=== PATIENT | female | born 2005 | race Caucasian/White ===

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

== ENCOUNTER 2023-04-19 18:04 | Emergency (ER) | payer OTHER ==
[2023-04-19 18:12] VITALS: BP 118/71; O2SAT 99
--- NOTE | 2023-04-19 18:18 | ED Physician Documentation ---
History of Present Illness - Stated complaint Stated Complaint: - Chief complaint Chief Complaint: UTI - History obtained from History obtained from: Patient - Additonal information Additional information: Urinary frequency urgency and dysuria since yesterday. No flank pain or fevers. No health problems. No frequent UTIs. PD PAST MEDICAL HISTORY - Past Medical History Past Medical History: Yes Derm: Eczema - Past Surgical History Past Surgical History: No - Present Medications Home Medications: Ambulatory Orders Medication Instructions Recorded Confirmed metroNIDAZOLE [Flagyl] 500 mg PO BID 7 Days #14 tablet 04/20/23 - Allergies Allergies/Adverse Reactions: Allergies Allergy/AdvReac Type Severity Reaction Status Date / Time No Known Drug Allergies Allergy Verified 04/19/23 18:10 - Social History Does the pt smoke?: No Smoking Status: Never smoker Does the pt drink ETOH?: No Does the pt have substance abuse?: No - Immunizations Immunizations are current?: Yes - POLST Patient has POLST: No PD ED PE NORMAL - Vitals Vital signs reviewed: Yes - General General: Alert and oriented X 3, No acute distress - Abdomen Abdomen: Soft, Non tender - Back Back: No CVA TTP - Neuro Neuro: Alert and oriented X 3 Results - Vitals Vitals: Vital Signs - 24 hr 04/19/23 18:07 Temperature 37.0 C Heart Rate 84 Respiratory 14 Rate Blood Pressure 118/71 O2 Saturation 99 Oxygen O2 Source Room air - Labs Labs: Laboratory Tests 04/19/23 04/19/23 04/19/23 18:13 19:00 19:00 Urine Color YELLOW Urine Clarity CLEAR Urine pH 6.0 Ur Specific [place] 1.025 Urine Protein NEGATIVE Urine Glucose (UA) NEGATIVE Urine Ketones NEGATIVE Urine Occult Blood SMALL H Urine Nitrite NEGATIVE Urine Bilirubin NEGATIVE Urine Urobilinogen 1 (NORMAL) Ur Leukocyte Esterase NEGATIVE Urine RBC 0-5 Urine WBC 0-3 Ur Squamous Epith Cells MOD Squamous H Urine Bacteria Rare Urine Mucus Few Strands Ur Microscopic Review INDICATED Urine Culture Comments NOT INDICATED Urine HCG, Qual NEGATIVE C. glabrata (PCR) NEGATIVE C. krusei (PCR) NEGATIVE Nini species DNA NEGATIVE Chlam trachomat DNA PCR NEGATIVE N.gonorrhoeae DNA (PCR) NEGATIVE T. vaginalis (PCR) NEGATIVE TNP Bact Vaginosis (PCR) POSITIVE A PD Medical Decision Making - ED course ED course: 17-year-old presents with dysuria, no discharge, already tried Monistat, normal exam. Urinalysis unremarkable. Will check for BV/yeast/STIs. 04/20/23 0946am: Spoke with pt, pos for BV, rx flagyl sent to [facility]. Departure - Departure Disposition: 01 Home, Self Care Clinical Impression: Dysuria Condition: Good Record reviewed to determine appropriate education?: Yes Instructions: ED Dysuria Uncertain Cause Prescriptions: metroNIDAZOLE [Flagyl] 500 mg PO BID 7 Days #14 tablet Comments: Your urinalysis was unremarkable. No sign of urinary infection/bladder infection. Because of that we are testing for bacterial vaginosis, yeast, and STDs. We will call with any positive results, and tailor specific therapy at that point. Because the tests take many hours, we will call again with any positive results. Discharge Date/Time: 04/19/23 19:03
[2023-04-19 18:22] LABS: BILIRUBIN,URINE NEGATIVE (NEGATIVE); GLUCOSE, URINE (UA) NEGATIVE (NEGATIVE); KETONES,URINE (UA) NEGATIVE (NEGATIVE); LEUKOCYTE ESTERASE, URINE NEGATIVE (NEGATIVE); NITRITE,URINE NEGATIVE (NEGATIVE); OCCULT BLOOD,URINE SMALL (NEGATIVE); PROTEIN,URINE NEGATIVE (NEGATIVE); UROBILINOGEN,URINE 1 (NORMAL) E.U./dL (NORMAL)
[2023-04-19 18:23] LABS: CLARITY,URINE CLEAR (CLEAR); HCG UR QUAL NEGATIVE
[2023-04-19 18:31] LABS: BACTERIA,URINE Rare /HPF (None Seen); MUCUS,URINE Few Strands; RBC,URINE 0-5 /HPF (0-5); SQUAMOUS EPITHELIAL CELL,UR MOD Squamous (<= Few); WBC,URINE 0-3 /HPF (0-5)
[2023-04-19 22:42] LABS: BACTERIAL VAGINOSIS DNA POSITIVE (NEGATIVE); CANDIDA GLABRATA DNA NEGATIVE (NEGATIVE); CANDIDA GROUP DNA NEGATIVE (NEGATIVE); CANDIDA KRUSEI DNA NEGATIVE (NEGATIVE); TRICHOMONAS VAGINALIS DNA NEGATIVE (NEGATIVE)
[2023-04-19 22:43] LABS: CHLAMYDIA TRACHOMATIS DNA NEGATIVE (NEGATIVE); NEISSERIA GONORRHOEAE DNA NEGATIVE (NEGATIVE)
== END 2023-04-19 19:03 | disposition home or self-care (01) ==
LOC: ED 18:04
DX: R30.0 Dysuria (principal)
CPT/HCPCS: 81001; 81003; 81025; 81514; 87086; 87491; 87591; 87661; 99283

== ENCOUNTER 2023-10-04 19:25 | Emergency (ER) | payer OTHER, MEDICAID ==
[2023-10-04 19:39] VITALS: O2SAT 100
[2023-10-04 19:44] LABS: RAPID STREP SCREEN Negative (Negative)
--- NOTE | 2023-10-04 21:05 | ED Physician Documentation ---
PD HPI HEENT - Stated complaint Stated Complaint: SORE THROAT/GARCIA - Chief complaint Chief Complaint: Heent - History obtained from History obtained from: Patient - Additional information Additional information: The patient comes to the emergency department chief complaint of sore throat and headache for the last several days. She states that strep was going around her place of work and she was concerned that she may have gotten also. She denies any fevers or chills. She states that she has not had a runny nose or cough. She otherwise feels fairly well. She has had a little nausea but states she is about 6 weeks and thinks that may just be "morning sickness". No other complaints at this time. No vaginal bleeding. No abdominal pain. PD PAST MEDICAL HISTORY - Past Medical History Past Medical History: No Derm: Eczema - Past Surgical History Past Surgical History: No - Present Medications Home Medications: Ambulatory Orders Medication Instructions Recorded Confirmed metroNIDAZOLE [Flagyl] 500 mg PO BID 7 Days #14 tablet 04/20/23 - Allergies Allergies/Adverse Reactions: Allergies Allergy/AdvReac Type Severity Reaction Status Date / Time No Known Drug Allergies Allergy Verified 10/04/23 19:29 - Social History Does the pt smoke?: No Smoking Status: Never smoker Does the pt drink ETOH?: No Does the pt have substance abuse?: No - Immunizations Immunizations are current?: Yes - POLST Patient has POLST: No PD ED PE NORMAL - Vitals Vital signs reviewed: Yes - General General: Alert and oriented X 3, No acute distress, Well developed/nourished - HEENT HEENT: Atraumatic, EOMI, Moist mucous membranes, Pharynx benign - Neck Neck: Supple, no meningeal sign, No adenopathy - Cardiac Cardiac: RRR, No murmur - Respiratory Respiratory: No respiratory distress, Clear bilaterally - Abdomen Abdomen: Soft, Non tender, Non distended - Derm Derm: Normal color, Warm and dry, No rash - Extremities Extremities: No deformity - Neuro Neuro: Alert and oriented X 3 - Psych Psych: Normal mood, Normal affect Results - Vitals Vitals: Vital Signs - 24 hr 10/04/23 19:29 Temperature 36.8 C Heart Rate 100 Respiratory 16 Rate Blood Pressure 132/83 H O2 Saturation 100 Oxygen O2 Source Room air - Labs Labs: Laboratory Tests 10/04/23 19:30 Group A Strep Rapid Negative PD Medical Decision Making - ED course Complexity details: reviewed results, re-evaluated patient, considered differential, d/w patient ED course: I discussed with the patient that her rapid strep test here is negative. I suspect a viral illness. The patient does not think she has been drinking enough water but I reminded her of the importance of staying hydrated especially during . She is given a dose of Tylenol for her headache. We have discussed that she should take Tylenol and not ibuprofen while . We discussed the need for follow-up and the usual indications for return. Departure - Departure Disposition: 01 Home, Self Care Clinical Impression: Pharyngitis Qualifiers: Pharyngitis/tonsillitis etiology: unspecified etiology Qualified Code(s): J02.9 - Acute pharyngitis, unspecified Condition: Stable Instructions: ED Pharyngitis Viral Comments: Your strep test is negative here. If you end up with a positive throat culture, which takes about 24 hours to come back, we will call you at home and let you know and send in an antibiotic prescription for you. At this point in time, your sore throat is most likely from a virus. In general these go away on their own and are not helped by antibiotics. It is important that you follow-up with your doctor for care. If you develop any vaginal bleeding and have not yet had an ultrasound to confirm the placement of the baby, please return to the emergency department.
[2023-10-04] MEDS: ACETAMINOPHEN 325 MG TABLET PO STA (21:07)
[2023-10-04 21:14] VITALS: BP 126/82
== END 2023-10-04 21:09 | disposition home or self-care (01) ==
LOC: ED 19:25
DX: J02.9 Acute pharyngitis, unspecified (principal)
CPT/HCPCS: 87070; 87430; 99283; A9270

== ENCOUNTER 2023-10-13 08:00 | Outpatient (CLI) | payer MEDICAID, OTHER ==
[2023-10-13 16:13] LABS: BILIRUBIN,URINE NEGATIVE (NEGATIVE); GLUCOSE, URINE (UA) NEGATIVE (NEGATIVE); KETONES,URINE (UA) NEGATIVE (NEGATIVE); LEUKOCYTE ESTERASE, URINE NEGATIVE (NEGATIVE); NITRITE,URINE NEGATIVE (NEGATIVE); OCCULT BLOOD,URINE NEGATIVE (NEGATIVE); PROTEIN,URINE NEGATIVE (NEGATIVE); UROBILINOGEN,URINE 0.2 (NORMAL) E.U./dL (NORMAL)
[2023-10-13 16:21] LABS: CLARITY,URINE CLOUDY (CLEAR)
[2023-10-13 16:40] LABS: RBC,URINE None Seen /HPF (0-5); WBC,URINE 0-3 /HPF (0-5)
[2023-10-13 16:41] LABS: AMORPHOUS SEDIMENT,UR Marked /LPF; BACTERIA,URINE None Seen /HPF (None Seen); SQUAMOUS EPITHELIAL CELL,UR FEW Squamous (<= Few)
== END 2023-10-13 23:59 | disposition home or self-care (01) ==
LOC: LAB.WC 08:00
PROVIDERS: ATTEND Obstetrics & Gynecology
DX: Z34.00 Encounter for supervision of normal first pregnancy, unspecified trimester (principal)
CPT/HCPCS: 81001; 87086

== ENCOUNTER 2023-11-08 15:12 | Emergency (ER) | payer OTHER ==
--- NOTE | 2023-11-08 15:39 | ED Physician Documentation ---
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 She is scheduled for an ultrasound in 2 days, occasionally has left-sided pelvic pain. Decided to come in today for evaluation as the spotting had continued. It has not increased. She states it is mainly noticeable when she wipes. No fevers. No chills. No trauma. No headache. No lightheadedness or dizziness. Review of Systems Constitutional: denies: Fever, Chills Respiratory: denies: Cough GI: denies: Abdominal Pain, Nausea, Vomiting, Diarrhea : denies: Dysuria, Frequency, Hesitancy Musculoskeletal: denies: Neck pain, Back pain Neurologic: denies: Headache PD PAST MEDICAL HISTORY - Past Medical History Past Medical History: Yes Derm: Eczema - Past Surgical History Past Surgical History: No - Present Medications Home Medications: Ambulatory Orders Medication Instructions Recorded Confirmed No Known Home Medications 11/08/23 11/08/23 - Allergies Allergies/Adverse Reactions: Allergies Allergy/AdvReac Type Severity Reaction Status Date / Time No Known Drug Allergies Allergy Verified 11/08/23 15:21 - Social History Does the pt smoke?: No Smoking Status: Never smoker Does the pt drink ETOH?: No Does the pt have substance abuse?: No - Immunizations Immunizations are current?: Yes - POLST Patient has POLST: No PD ED PE NORMAL - Vitals Vital signs reviewed: Yes - General General: Alert and oriented X 3, No acute distress - HEENT HEENT: Moist mucous membranes - Neck Neck: Supple, no meningeal sign - Cardiac Cardiac: RRR, Strong equal pulses - Respiratory Respiratory: No respiratory distress, Clear bilaterally - Abdomen Abdomen: Soft, Non tender, Non distended - Derm Derm: Warm and dry - Extremities Extremities: No edema - Neuro Neuro: Alert and oriented X 3 - Psych Psych: Normal mood, Normal affect Results - Vitals Vitals: Vital Signs - 24 hr 11/08/23 11/08/23 15:15 17:30 Temperature 36.8 C Heart Rate 87 75 Respiratory 14 14 Rate Blood Pressure 109/66 111/59 L O2 Saturation 98 100 Oxygen O2 Source Room air - Labs Labs: Laboratory Tests 11/08/23 11/08/23 11/08/23 15:46 15:46 15:46 WBC 7.7 RBC 4.53 Hgb 13.5 Hct 40.6 MCV 89.6 MCH 29.8 MCHC 33.3 RDW 13.2 Plt Count 300 MPV 9.3 Neut # (Auto) 4.4 Lymph # (Auto) 2.6 [place] # (Auto) 0.4 Eos # (Auto) 0.2 Baso # (Auto) 0.0 Absolute Nucleated RBC 0.00 Nucleated RBC % 0.0 Sodium 137 Potassium 3.6 Chloride 105 Carbon Dioxide 26 Anion Gap 6.0 BUN 12 Creatinine 0.5 L Estimated GFR (MDRD) 157 Glucose 101 Calcium 9.6 Total Bilirubin 0.8 AST 18 ALT 17 Alkaline Phosphatase 63 Total Protein 6.9 Albumin 4.3 Globulin 2.6 Albumin/Globulin Ratio 1.7 Lipase 13 Beta HCG, Quant 89295.3 Urine Color Urine Clarity Urine pH Ur Specific [place] Urine Protein Urine Glucose (UA) Urine Ketones Urine Occult Blood Urine Nitrite Urine Bilirubin Urine Urobilinogen Ur Leukocyte Esterase Urine RBC Urine WBC Ur Squamous Epith Cells Amorphous Sediment Urine Bacteria Ur Microscopic Review Urine Culture Comments Blood Type O POSITIVE 11/08/23 15:46 WBC RBC Hgb Hct MCV MCH MCHC RDW Plt Count MPV Neut # (Auto) Lymph # (Auto) [place] # (Auto) Eos # (Auto) Baso # (Auto) Absolute Nucleated RBC Nucleated RBC % Sodium Potassium Chloride Carbon Dioxide Anion Gap BUN Creatinine Estimated GFR (MDRD) Glucose Calcium Total Bilirubin AST ALT Alkaline Phosphatase Total Protein Albumin Globulin Albumin/Globulin Ratio Lipase Beta HCG, Quant Urine Color YELLOW Urine Clarity HAZY Urine pH 7.0 Ur Specific [place] 1.025 Urine Protein NEGATIVE Urine Glucose (UA) NEGATIVE Urine Ketones NEGATIVE Urine Occult Blood MODERATE H Urine Nitrite NEGATIVE Urine Bilirubin NEGATIVE Urine Urobilinogen 0.2 (NORMAL) Ur Leukocyte Esterase NEGATIVE Urine RBC 0-5 Urine WBC 0-3 Ur Squamous Epith Cells MANY Squamous H Amorphous Sediment Few Urine Bacteria Few Ur Microscopic Review INDICATED Urine Culture Comments NOT INDICATED Blood Type PD Medical Decision Making - ED course Complexity details: reviewed results, re-evaluated patient, considered differential, d/w patient ED course: 18-year-old female with vaginal spotting for the past few weeks. She believes she is about 10 weeks . hCG is around 23,000. Her first trimester ultrasound shows an IUP but without cardiac activity, could be failure, could also be early . No evidence of ectopic. We will have the patient follow-up closely with OB for repeat hCG to determine if it is uptrending or downtrending. Patient was informed that this could be a miscarriage. Patient will return for increasing pain, increasing bleeding or other new or worrisome symptoms. Patient counseled regarding signs and symptoms for which I believe and urgent re-evaluation would be necessary. Patient with good understanding of and agreement to plan and is comfortable going home at this time This document was made in part using voice recognition software. While efforts are made to proofread this document, sound alike and grammatical errors may occur. Departure - Departure Disposition: 01 Home, Self Care Clinical Impression: Vaginal bleeding affecting early Condition: Good Instructions: ED Abdominal Pain Rule Out Ectopic, ED Miscarriage Poss Follow-Up: Vincent Nunez MD [Provider Admit Priv/Credential] - [facility] [Provider Group] - Within 3 Days Comments: As we discussed your hCG level is 23,218 today. You need to repeat hCG in 2 to 3 days. This will help us determine if you are having a miscarriage or not. Your ultrasound today does show an intrauterine but no heartbeat yet. You are measuring approximately 6 weeks and 2 days. There is no evidence of ectopic today. Please return for increasing vaginal bleeding, increasing pelvic pain or other new or worrisome symptoms. Please contact the women's clinic tomorrow to have your repeat hCG ordered. Forms: PCP List
[2023-11-08 15:54] LABS: BASOPHILS % (AUTO) 0.4 %; EOSINOPHILS # (AUTO) 0.2 10^3/uL (0.0-0.7); HCT - HEMATOCRIT 40.6 % (37.0-47.0); HGB - HEMOGLOBIN 13.5 g/dL (12.0-16.0); LYMPHOCYTES # (AUTO) 2.6 10^3/uL (1.5-3.5); LYMPHOCYTES % (AUTO) 33.6 %; MEAN CORPUSCULAR HEMOGLOBIN 29.8 pg (27.0-31.0); MEAN CORPUSCULAR HGB CONC 33.3 g/dL (32.0-36.0); MEAN CORPUSCULAR VOLUME 89.6 fL (81.0-99.0); MEAN PLATELET VOLUME 9.3 fL (7.9-10.8); MONOCYTES # (AUTO) 0.4 10^3/uL (0.0-1.0); MONOCYTES % (AUTO) 5.3 %; NEUTROPHILS # (AUTO) 4.4 10^3/uL (1.5-6.6); NEUTROPHILS % (AUTO) 57.3 %; PLT - PLATELET COUNT 300 10^3/uL (130-450); RED BLOOD COUNT 4.53 10^6/uL (4.20-5.40); RED CELL DISTRIBUTION WIDTH 13.2 % (12.0-15.0); WHITE BLOOD COUNT 7.7 x10^3/uL (4.8-10.8)
[2023-11-08 15:59] LABS: BILIRUBIN,URINE NEGATIVE (NEGATIVE); GLUCOSE, URINE (UA) NEGATIVE (NEGATIVE); KETONES,URINE (UA) NEGATIVE (NEGATIVE); LEUKOCYTE ESTERASE, URINE NEGATIVE (NEGATIVE); NITRITE,URINE NEGATIVE (NEGATIVE); OCCULT BLOOD,URINE MODERATE (NEGATIVE); PROTEIN,URINE NEGATIVE (NEGATIVE); UROBILINOGEN,URINE 0.2 (NORMAL) E.U./dL (NORMAL)
[2023-11-08 16:08] LABS: CLARITY,URINE HAZY (CLEAR)
[2023-11-08 16:11] LABS: ALBUMIN 4.3 g/dL (3.2-5.5); ALBUMIN/GLOBULIN RATIO 1.7 (1.0-2.2); BILIRUBIN,TOTAL 0.8 mg/dL (0.2-1.0); CALCIUM 9.6 mg/dL (8.5-10.3); CREATININE 0.5 mg/dL (0.6-1.3); POTASSIUM 3.6 mmol/L (3.5-4.5); TOTAL PROTEIN 6.9 g/dL (6.4-8.9)
[2023-11-08 16:28] LABS: BACTERIA,URINE Few /HPF (None Seen); RBC,URINE 0-5 /HPF (0-5); SQUAMOUS EPITHELIAL CELL,UR MANY Squamous (<= Few); WBC,URINE 0-3 /HPF (0-5)
[2023-11-08 16:29] LABS: AMORPHOUS SEDIMENT,UR Few /LPF
[2023-11-08 17:37] VITALS: BP 111/59; O2SAT 100
--- NOTE | 2023-11-08 17:56 | Ultrasound Report ---
PROCEDURE: OB 1st Trimester w/TV INDICATIONS: L pelvic pain, 10 weeks preg? OUTSIDE/PRIOR DATING DATA: Last menstrual period (LMP): 08/28/2023. LMP-based estimated date of delivery (IVAN): 06/03/2024. First dating scan (date and location): 11/08/2023. TECHNIQUE: Real-time scanning was performed of the fetus and maternal pelvic organs, with image documentation. Endovaginal scanning was also performed to better visualize the fetus and maternal ovaries. COMPARISON: None. FINDINGS: A possible pole is seen measuring 0.53 cm. This corresponds to an ultrasound age of 6 weeks and 2 days. No cardiac activity is identified however. A yolk sac is present. Suspected left corpus luteum. IMPRESSION: Possible pole measures 0.53 cm, without cardiac activity by ultrasound. This is suspicious, but not diagnostic of failure. Recommend follow-up laboratory and imaging correlation in 14 da ys or sooner. Reviewed by: Pierce Tobias MD on 11/08/2023 5:55 PM PDT Approved by: Pierce Tobias MD on 11/08/2023 5:55 PM PDT Station ID: [id number]
== END 2023-11-08 18:06 | disposition home or self-care (01) ==
LOC: ED 15:12
DX: O20.9 Hemorrhage in early pregnancy, unspecified (principal); Z3A.10 10 weeks gestation of pregnancy
CPT/HCPCS: 36415; 80053; 81001; 81003; 83690; 84702; 85025; 86900; 86901; 87086; 99283; 99284

== ENCOUNTER 2023-11-11 08:00 | Outpatient (CLI) | payer OTHER ==
[2023-11-11 22:05] LABS: CHLAMYDIA TRACHOMATIS DNA NEGATIVE (NEGATIVE); NEISSERIA GONORRHOEAE DNA NEGATIVE (NEGATIVE); TRICHOMONAS VAGINALIS DNA NEGATIVE (NEGATIVE)
== END 2023-11-11 23:59 | disposition home or self-care (01) ==
LOC: LAB.WC 08:00
PROVIDERS: ATTEND Obstetrics & Gynecology
DX: Z34.00 Encounter for supervision of normal first pregnancy, unspecified trimester (principal); Z36.89 Encounter for other specified antenatal screening
CPT/HCPCS: 36415; 84702; 85025; 86592; 86762; 86787; 86803; 86850; 86900; 86901; 87340; 87389; 87491; 87591; 87661

== ENCOUNTER 2023-11-11 15:53 | Outpatient (CLI) | payer OTHER ==
[2023-11-11 16:20] LABS: BASOPHILS # (AUTO) 0.1 10^3/uL (0.0-0.1); BASOPHILS % (AUTO) 0.9 %; EOSINOPHILS # (AUTO) 0.2 10^3/uL (0.0-0.7); EOSINOPHILS % (AUTO) 2.2 %; HCT - HEMATOCRIT 41.6 % (37.0-47.0); HGB - HEMOGLOBIN 13.5 g/dL (12.0-16.0); LYMPHOCYTES # (AUTO) 2.4 10^3/uL (1.5-3.5); LYMPHOCYTES % (AUTO) 30.6 %; MEAN CORPUSCULAR HEMOGLOBIN 29.9 pg (27.0-31.0); MEAN CORPUSCULAR HGB CONC 32.5 g/dL (32.0-36.0); MEAN PLATELET VOLUME 10.2 fL (7.9-10.8); MONOCYTES # (AUTO) 0.4 10^3/uL (0.0-1.0); MONOCYTES % (AUTO) 4.8 %; NEUTROPHILS # (AUTO) 4.8 10^3/uL (1.5-6.6); NEUTROPHILS % (AUTO) 61.2 %; PLT - PLATELET COUNT 236 10^3/uL (130-450); RED BLOOD COUNT 4.52 10^6/uL (4.20-5.40); RED CELL DISTRIBUTION WIDTH 13.3 % (12.0-15.0); WHITE BLOOD COUNT 7.8 x10^3/uL (4.8-10.8)
[2023-11-12 03:10] LABS: HIV SCREEN 4TH GENERATION Non Reactive (Non Reactive)
[2023-11-12 04:12] LABS: HBsAG SCREEN Negative (Negative)
[2023-11-12 06:15] LABS: RPR Non Reactive (Non Reactive)
== END 2023-11-11 15:54 | disposition home or self-care (01) ==
LOC: LAB 15:53
PROVIDERS: ATTEND Obstetrics & Gynecology
DX: Z34.00 Encounter for supervision of normal first pregnancy, unspecified trimester (principal); Z36.89 Encounter for other specified antenatal screening
CPT/HCPCS: 36415; 84702; 85025; 86592; 86762; 86787; 86803; 86850; 86900; 86901; 87340; 87389

== ENCOUNTER 2023-11-14 22:30 | Emergency (ER) | payer OTHER ==
[2023-11-14 22:40] VITALS: O2SAT 100
[2023-11-14 23:07] LABS: BASOPHILS # (AUTO) 0.1 10^3/uL (0.0-0.1); BASOPHILS % (AUTO) 0.8 %; EOSINOPHILS # (AUTO) 0.3 10^3/uL (0.0-0.7); HCT - HEMATOCRIT 37.1 % (37.0-47.0); HGB - HEMOGLOBIN 12.5 g/dL (12.0-16.0); LYMPHOCYTES # (AUTO) 2.5 10^3/uL (1.5-3.5); LYMPHOCYTES % (AUTO) 38.7 %; MEAN CORPUSCULAR HEMOGLOBIN 30.3 pg (27.0-31.0); MEAN CORPUSCULAR HGB CONC 33.7 g/dL (32.0-36.0); MEAN CORPUSCULAR VOLUME 89.8 fL (81.0-99.0); MEAN PLATELET VOLUME 9.2 fL (7.9-10.8); MONOCYTES # (AUTO) 0.5 10^3/uL (0.0-1.0); MONOCYTES % (AUTO) 8.1 %; NEUTROPHILS # (AUTO) 3.1 10^3/uL (1.5-6.6); NEUTROPHILS % (AUTO) 47.2 %; PLT - PLATELET COUNT 255 10^3/uL (130-450); RED BLOOD COUNT 4.13 10^6/uL (4.20-5.40); RED CELL DISTRIBUTION WIDTH 12.9 % (12.0-15.0); WHITE BLOOD COUNT 6.6 x10^3/uL (4.8-10.8)
[2023-11-14 23:20] LABS: ALBUMIN/GLOBULIN RATIO 1.9 (1.0-2.2); BILIRUBIN,TOTAL 0.5 mg/dL (0.2-1.0); CALCIUM 9.2 mg/dL (8.5-10.3); CREATININE 0.5 mg/dL (0.6-1.3); POTASSIUM 3.7 mmol/L (3.5-4.5); TOTAL PROTEIN 6.1 g/dL (6.4-8.9)
--- NOTE | 2023-11-15 00:43 | ED Physician Documentation ---
PD HPI FEMALE - Stated complaint Stated Complaint: - Chief complaint Chief Complaint: Abd Pain - History obtained from History obtained from: Patient - Additional information Additional information: Patient is a 18-year-old female G1, P0 who is approximately 7 weeks presenting for evaluation of vaginal bleeding. Patient states this has been ongoing for 3 to 4 weeks. She was seen here in the emergency department 1 week ago and has also been seen in the women's care clinic. She had an ultrasound a week ago that showed a yolk sac but no pole. She had a repeat hCG a few days ago that showed decrease in hCG. She states that today the spotting was more pink than brown as it has been. She has had cramping at times but the last day was 2 days ago and she denies having any discomfort today. No dizziness or lightheadedness. Review of Systems Constitutional: denies: Fever Cardiac: denies: Chest pain / pressure Respiratory: denies: Dyspnea GI: denies: Abdominal Pain : reports: Vaginal bleeding. denies: Dysuria PD PAST MEDICAL HISTORY - Past Medical History Past Medical History: Yes Derm: Eczema - Past Surgical History Past Surgical History: No - Present Medications Home Medications: Ambulatory Orders Medication Instructions Recorded Confirmed No Known Home Medications 11/08/23 11/14/23 - Allergies Allergies/Adverse Reactions: Allergies Allergy/AdvReac Type Severity Reaction Status Date / Time No Known Drug Allergies Allergy Verified 11/14/23 22:39 - Social History Does the pt smoke?: No Smoking Status: Never smoker Does the pt drink ETOH?: No Does the pt have substance abuse?: No - Immunizations Immunizations are current?: Yes - POLST Patient has POLST: No PD ED PE NORMAL - General General: Alert and oriented X 3, No acute distress, Well developed/nourished - HEENT HEENT: Atraumatic - Neck Neck: Supple, no meningeal sign - Cardiac Cardiac: RRR, Strong equal pulses - Respiratory Respiratory: No respiratory distress, Clear bilaterally - Abdomen Abdomen: Normal bowel sounds, Soft, Non tender, Non distended - Derm Derm: Warm and dry Results - Vitals Vitals: Vital Signs - 24 hr 11/14/23 11/15/23 22:33 00:50 Temperature 36.6 C Heart Rate 66 74 Respiratory 16 16 Rate Blood Pressure 117/61 107/55 L O2 Saturation 100 100 Oxygen O2 Source Room air - Labs Labs: Laboratory Tests 11/14/23 11/14/23 22:57 22:57 WBC 6.6 RBC 4.13 L Hgb 12.5 Hct 37.1 MCV 89.8 MCH 30.3 MCHC 33.7 RDW 12.9 Plt Count 255 MPV 9.2 Neut # (Auto) 3.1 Lymph # (Auto) 2.5 [place] # (Auto) 0.5 Eos # (Auto) 0.3 Baso # (Auto) 0.1 Absolute Nucleated RBC 0.00 Nucleated RBC % 0.0 Sodium 135 Potassium 3.7 Chloride 105 Carbon Dioxide 25 Anion Gap 5.0 L BUN 10 Creatinine 0.5 L Estimated GFR (MDRD) 157 Glucose 91 Calcium 9.2 Total Bilirubin 0.5 AST 16 ALT 14 Alkaline Phosphatase 57 Total Protein 6.1 L Albumin 4.0 Globulin 2.1 Albumin/Globulin Ratio 1.9 Beta HCG, Quant 08051.8 PD Medical Decision Making - ED course Complexity details: reviewed results, d/w patient, d/w family ED course: Patient is a 18-year-old female who believes she is approximately 7 weeks presenting for evaluation of ongoing vaginal bleeding. It is not enough to saturate a pad. Hemodynamically stable. CBC, chemistries were obtained and reviewed and without significant findings. combination technician is not available at this time of night on the weekends. Bedside ultrasound was done with transabdominal views. There appears to be an intrauterine yolk sac but otherwise no signs of cardiac activity. No free fluid. No tenderness during bedside ultrasound. hCG is 12,792. This is a significant decrease from 1 week ago at which time her hCG was 23,218.Blood type is O+.Concern for miscarriage in progress given significant decrease in hCG. Patient counseled on need for continued close follow-up with women's care clinic as well as advised on strict return precautions. Departure - Departure Disposition: 01 Home, Self Care Clinical Impression: Vaginal bleeding affecting early Condition: Stable Instructions: ED Miscarriage Poss Follow-Up: [facility] [Provider Group] Comments: Your lab testing today is concerning for a miscarriage in progress. Your hormone levels have dropped over the last week from 69203 --> 74820 --> 58391. We do not have ultrasound techs available at this time of night but on our bedside ultrasound we were also not able to see further signs of the such as cardiac activity. Please have close follow-up with the women's clinic. Return to the ER if you develop any worsening symptoms such as severe pain or heavy vaginal bleeding where you are soaking through a pad an hour for more than 2 hours. Forms: PCP List Discharge Date/Time: 11/15/23 00:51
[2023-11-15 00:52] VITALS: BP 107/55
== END 2023-11-15 00:51 | disposition home or self-care (01) ==
LOC: ED 22:30
DX: O20.9 Hemorrhage in early pregnancy, unspecified (principal); Z3A.01 Less than 8 weeks gestation of pregnancy
CPT/HCPCS: 36415; 80053; 84702; 85025; 99283; 99284

== ENCOUNTER 2023-11-15 09:51 | Emergency (ER) | payer OTHER ==
--- NOTE | 2023-11-15 12:03 | ED Physician Documentation ---
History of Present Illness - Stated complaint Stated Complaint: - Chief complaint Chief Complaint: Abd Pain - History obtained from History obtained from: Patient - History of Present Illness Timing: Today Pain level max: 4 Pain level now: 4 - Additonal information Additional information: Patient is a 18-year-old female who presents to the emergency department stating that she is G1, P0. Was seen here about a week ago for spotting in . She has had 3 downtrending hCGs since that time. Was seen here last night, but ultrasound was not available. She states she has had bleeding similar to her normal menses today. She states she passed a clot this morning. She states that she has lower abdominal cramping. She states that her OB wanted her to have an ultrasound. She is scheduled for an ultrasound in 2 days. 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 : None HEENT: None Psych: None Musculoskeletal: None Derm: Eczema - Past Surgical History Past Surgical History: No - Present Medications Home Medications: Ambulatory Orders Medication Instructions Recorded Confirmed No Known Home Medications 11/08/23 11/15/23 - Allergies Allergies/Adverse Reactions: Allergies Allergy/AdvReac Type Severity Reaction Status Date / Time No Known Drug Allergies Allergy Verified 11/15/23 10:07 - Social History Does the pt smoke?: No Smoking Status: Never smoker Does the pt drink ETOH?: No Does the pt have substance abuse?: No - Immunizations Immunizations are current?: Yes - POLST Patient has POLST: No PD ED PE NORMAL - Vitals Vital signs reviewed: Yes - General General: Alert and oriented X 3, No acute distress - HEENT HEENT: Moist mucous membranes - Neck Neck: Supple, no meningeal sign - Cardiac Cardiac: RRR, Strong equal pulses - Respiratory Respiratory: No respiratory distress, Clear bilaterally - Abdomen Abdomen: Soft, Non tender, Non distended - Derm Derm: Warm and dry - Extremities Extremities: No edema - Neuro Neuro: Alert and oriented X 3 - Psych Psych: Normal mood, Normal affect Results - Vitals Vitals: Vital Signs - 24 hr 11/15/23 11/15/23 10:07 12:38 Temperature 36.6 C Heart Rate 88 72 Respiratory 16 16 Rate Blood Pressure 103/69 97/54 L O2 Saturation 99 100 Oxygen O2 Source Room air - Rads (name of study) OB US Relevant Findings:: Final report received, See rad report PD Medical Decision Making - ED course Complexity details: reviewed results, re-evaluated patient, considered differential, d/w patient, d/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 I did speak with Dr. Gutierrez, OB on-call, she request that we do the ultrasound today rather than wait 2 days. Therefore the ultrasound was ordered. Ultrasound shows no signs of a intrauterine at this time and has a normal appearing uterus. Had a hCG last night, no indication for repeat hCG. Patient appears to have had a completed miscarriage. Recommend she follow-up with OB to continue to trend her hCGs. Patient counseled regarding signs and symptoms for which I believe and urgent re-evaluation would be necessary. Patient with good understanding of and agreement to plan and is comfortable going home at this time This document was made in part using voice recognition software. While efforts are made to proofread this document, sound alike and grammatical errors may occur. Departure - Departure Disposition: 01 Home, Self Care Clinical Impression: Complete miscarriage Condition: Good Instructions: ED Miscarriage Completed Follow-Up: Your,doctor in 1 week [Other] Comments: Your ultrasound today shows a completed miscarriage. It is recommended that you still have your hCGs trended to 0. Please follow-up with OB or your doctor for further care. You do not need to have the ultrasound in 2 days. Forms: PCP List Discharge Date/Time: 11/15/23 12:41
[2023-11-15 12:40] VITALS: BP 97/54; O2SAT 100
--- NOTE | 2023-11-15 13:15 | Ultrasound Report ---
PROCEDURE: OB 1st Trimester w/TV INDICATIONS: 6 weeks preg, downtrending HCG, vag bleed OUTSIDE/PRIOR DATING DATA: Last menstrual period (LMP): 08/28/2023. LMP-based estimated date of delivery (IVAN): 06/03/2024. First dating scan (date and location): 11/08/2023. Estimated date of delivery (IVAN) from first dating scan: 07/01/2024. TECHNIQUE: Real-time scanning was performed of the fetus and maternal pelvic organs, with image documentation. Endovaginal scanning was also performed to better visualize the fetus and maternal ovaries. COMPARISON: 11/08/2023 FINDINGS: Intrauterine gestational sac no longer present. Embryo: Not visualized. Heart rate: Not applicable. Other: No perigestational fluid collection. Measurement variability in dating: +/- 4 weeks by LMP, +/- 7 days by mean sac diameter (use before 6 weeks gestation if crown-rump length not able to be measured), +/- 5 days by crown-rump length (6-12 weeks gestation). Maternal organs: Ovaries appear within normal limits. IMPRESSION: Intrauterine gestational sac no longer visualized, likely indicating interval miscarriage. Reviewed by: Esa Flores MD on 11/15/2023 1:14 PM PDT Approved by: Esa Flores MD on 11/15/2023 1:14 PM PDT Station ID: [id number]
== END 2023-11-15 12:41 | disposition home or self-care (01) ==
LOC: ED 09:51
DX: O03.9 Complete or unspecified spontaneous abortion without complication (principal)
CPT/HCPCS: 36415; 80053; 84702; 85025; 99283; 99284

== ENCOUNTER 2023-12-11 18:48 | Emergency (ER) | payer OTHER ==
[2023-12-11 19:25] VITALS: O2SAT 99
--- NOTE | 2023-12-11 20:05 | ED Physician Documentation ---
PD HPI FEMALE - Stated complaint Stated Complaint: ABD PX/GI BLEEDING - Chief complaint Chief Complaint: General - History obtained from History obtained from: Patient - Additional information Additional information: HPI from patient. Patient was evaluated in this ED 3 times last month (November 07, , ). All 3 of these visits were related to vaginal bleeding in the setting of early (the charts from those visits reflect patient estimated she was some more between 7 to 10 weeks ). On the first of those 3 visits, the patient had an ultrasound showing possible pole corresponding to US age of 6 w 2 d but no cardiac activity. She was evaluated in the outpatient setting and had repeat hCG, which was again done on the (ER visit); there was significant downtrend in HCG levels and repeat US on the ER visit on the showed normal uterus without products of conception and thus diagnosis was completed miscarriage. She was instructed to again follow-up in the outpatient setting with PHARMACY SERVICES REPRESENTATIVE; patient says she has not followed up since then because she traveled out of [place] and only recently returned. She presents to the emergency department at this time due to intermittent vaginal bleeding since her visit on the of last month to this ER. She says that the bleeding is no worse than spotting, has not been on a daily basis, and no associated abdominal/pelvic discomfort or cramping. Not passing clots nor tissue. Her miscarriage was her first . 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 : None HEENT: None Psych: None Musculoskeletal: None Derm: Eczema - Past Surgical History Past Surgical History: No - Present Medications Home Medications: Ambulatory Orders Medication Instructions Recorded Confirmed No Known Home Medications 11/08/23 12/11/23 - Allergies Allergies/Adverse Reactions: Allergies Allergy/AdvReac Type Severity Reaction Status Date / Time No Known Drug Allergies Allergy Verified 12/11/23 19:13 - Social History Does the pt smoke?: No Smoking Status: Never smoker Does the pt drink ETOH?: No Does the pt have substance abuse?: No - Immunizations Immunizations are current?: Yes - POLST Patient has POLST: No PD ED PE NORMAL - Vitals Vital signs reviewed: Yes - General General: Alert and oriented X 3, No acute distress, Well developed/nourished - Abdomen Abdomen: Soft, Non tender - Derm Derm: Normal color Results - Vitals Vitals: Vital Signs - 24 hr 12/11/23 12/11/23 19:07 20:51 Temperature 36.8 C 36.3 C L Heart Rate 92 74 Respiratory 18 16 Rate Blood Pressure 109/66 122/68 O2 Saturation 99 99 Oxygen O2 Source Room air - Labs Labs: Laboratory Tests 12/11/23 12/11/23 12/11/23 19:23 19:23 19:23 WBC 9.5 RBC 4.44 Hgb 13.3 Hct 40.1 MCV 90.3 MCH 30.0 MCHC 33.2 RDW 12.9 Plt Count 301 MPV 9.7 Neut # (Auto) 4.8 Lymph # (Auto) 3.7 H [place] # (Auto) 0.6 Eos # (Auto) 0.3 Baso # (Auto) 0.1 Absolute Nucleated RBC 0.00 Nucleated RBC % 0.0 Sodium 139 Potassium 3.6 Chloride 108 Carbon Dioxide 24 Anion Gap 7.0 BUN 13 Creatinine 0.8 Estimated GFR (MDRD) 91 Glucose 92 Calcium 9.2 Beta HCG, Quant 19.0 PD Medical Decision Making - ED course Complexity details: reviewed results, re-evaluated patient, considered differential, d/w patient ED course: Normal CBC (with only exception of elevated lymphocytes, which is an insignificant finding given normal white blood cell count), normal basic metabolic profile. Tonight's quantitative hCG is 19. Her hCG was 12,792 on 11/14/2023. As noted in HPI, above, the ultrasound she had on the indicated no evidence of products of conception and normal uterus; given this, there is no need for repeat ultrasound at this time. Results discussed with patient. Instructed her to pursue follow-up in the outpatient setting with PHARMACY SERVICES REPRESENTATIVE, as her teleprinter installer might want to follow the HCG down to zero. Return precautions reviewed. Departure - Departure Disposition: 01 Home, Self Care Clinical Impression: Vaginal bleeding Condition: Good Instructions: ED Miscarriage Completed Comments: Your HCG level was 19.0 today; this is down from 12,792 on 11/14/23. Your red blood cell levels are normal tonight, which would indicate no significant blood loss. As we discussed, it is important that you pursue follow-up with your PHARMACY SERVICES REPRESENTATIVE as soon as can be arranged; your teleprinter installer might recommend having further level checks until it is even lower. Forms: PCP List Discharge Date/Time: 12/11/23 20:51
[2023-12-11 20:10] LABS: BASOPHILS # (AUTO) 0.1 10^3/uL (0.0-0.1); BASOPHILS % (AUTO) 0.7 %; EOSINOPHILS # (AUTO) 0.3 10^3/uL (0.0-0.7); HCT - HEMATOCRIT 40.1 % (37.0-47.0); HGB - HEMOGLOBIN 13.3 g/dL (12.0-16.0); LYMPHOCYTES # (AUTO) 3.7 10^3/uL (1.5-3.5); LYMPHOCYTES % (AUTO) 39.2 %; MEAN CORPUSCULAR HGB CONC 33.2 g/dL (32.0-36.0); MEAN CORPUSCULAR VOLUME 90.3 fL (81.0-99.0); MEAN PLATELET VOLUME 9.7 fL (7.9-10.8); MONOCYTES # (AUTO) 0.6 10^3/uL (0.0-1.0); MONOCYTES % (AUTO) 6.6 %; NEUTROPHILS # (AUTO) 4.8 10^3/uL (1.5-6.6); NEUTROPHILS % (AUTO) 50.3 %; PLT - PLATELET COUNT 301 10^3/uL (130-450); RED BLOOD COUNT 4.44 10^6/uL (4.20-5.40); RED CELL DISTRIBUTION WIDTH 12.9 % (12.0-15.0); WHITE BLOOD COUNT 9.5 x10^3/uL (4.8-10.8)
[2023-12-11 20:34] LABS: CALCIUM 9.2 mg/dL (8.5-10.3); CREATININE 0.8 mg/dL (0.6-1.3); POTASSIUM 3.6 mmol/L (3.5-4.5)
[2023-12-11 20:52] VITALS: BP 122/68
== END 2023-12-11 20:51 | disposition home or self-care (01) ==
LOC: ED 18:48
DX: O20.9 Hemorrhage in early pregnancy, unspecified (principal); Z3A.01 Less than 8 weeks gestation of pregnancy
CPT/HCPCS: 36415; 80048; 84702; 85025; 99283

== ENCOUNTER 2024-01-12 17:48 | Emergency (ER) | payer OTHER ==
--- NOTE | 2024-01-12 17:57 | ED Physician Documentation ---
History of Present Illness - Stated complaint Stated Complaint: - Chief complaint Chief Complaint: General - History obtained from History obtained from: Patient - Additonal information Additional information: 18-year-old female presents with urinary frequency for the last couple of days, no significant dysuria, mild lower back pain, no fever or chills, no nausea or vomiting. She had a miscarriage last month, no further vaginal bleeding. Denies any concern for STI to her knowledge. Has some mild vaginal pruritus, No abnormal vaginal discharge.No recent antibiotic use. Review of Systems Constitutional: reports: Reviewed and negative Eyes: reports: Reviewed and negative Ears: reports: Reviewed and negative Nose: reports: Reviewed and negative Throat: reports: Reviewed and negative Cardiac: reports: Reviewed and negative Respiratory: reports: Reviewed and negative GI: reports: Reviewed and negative : reports: Dysuria, Frequency. 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 : None HEENT: None Psych: None Musculoskeletal: None Derm: Eczema - Past Surgical History Past Surgical History: No - Present Medications Home Medications: Ambulatory Orders Medication Instructions Recorded Confirmed Fluconazole 150 mg PO ONCE #1 tablet 01/12/24 cephALEXin [Keflex] 500 mg PO BID #10 cap 01/12/24 - Allergies Allergies/Adverse Reactions: Allergies Allergy/AdvReac Type Severity Reaction Status Date / Time No Known Drug Allergies Allergy Verified 01/12/24 18:06 - Social History Does the pt smoke?: No Smoking Status: Never smoker Does the pt drink ETOH?: No Does the pt have substance abuse?: No - Immunizations Immunizations are current?: Yes - POLST Patient has POLST: No PD ED PE NORMAL - Vitals Vital signs reviewed: Yes - General General: Alert and oriented X 3, No acute distress, Well developed/nourished - HEENT HEENT: Atraumatic, Moist mucous membranes - Cardiac Cardiac: RRR, No murmur, No gallop, No rub - Respiratory Respiratory: No respiratory distress, Clear bilaterally - Abdomen Abdomen: Normal bowel sounds, Soft, Non tender, Non distended - Back Back: No CVA TTP, No spinal TTP - Derm Derm: Normal color, Warm and dry, No rash Results - Vitals Vitals: Vital Signs - 24 hr 01/12/24 17:49 Temperature 36.7 C Heart Rate 101 H Respiratory 16 Rate Blood Pressure 114/74 O2 Saturation 100 Oxygen O2 Source Room air - Labs Labs: Laboratory Tests 01/12/24 17:50 Urine Color YELLOW Urine Clarity CLEAR Urine pH 6.0 Ur Specific [place] 1.025 Urine Protein NEGATIVE Urine Glucose (UA) NEGATIVE Urine Ketones NEGATIVE Urine Occult Blood TRACE-INTA Urine Nitrite NEGATIVE Urine Bilirubin NEGATIVE Urine Urobilinogen 0.2 (NORMAL) Ur Leukocyte Esterase TRACE H Urine RBC 0-5 Urine WBC 11-25 H Ur Squamous Epith Cells FEW Squamous Urine Bacteria Few Urine Culture Comments INDICATED Urine HCG, Qual NEGATIVE PD Medical Decision Making - ED course Complexity details: reviewed results, re-evaluated patient, considered differential ED course: 18-year-old female presented with urinary frequency and vaginal pruritus as michael cribed in HPI. The patient is well-appearing here physical exam, afebrile nontoxic no acute distress. She does not have any CVAT or abdominal tenderness. I have low suspicion for pyelonephritis, ureteral stone, PID. Discussed with patient that differentials considered included urinary tract infection, STI, Yeast vaginitis, and others. We collected urinalysis which shows suspicious for infection, negative test. I did offer a pelvic exam however given positive urinalysis and no concerning vaginal discharge and pt w/o concern for STI or sx or PID, we will go ahead and treat patient for UTI, and send urine for gonorrhea chlamydia testing. Will treat with Keflex x 5 days, and 1 dose of fluconazole. Patient advised that if she developed a fever, flank pain or worsening symptoms to return to the ER or follow-up with PCP. Departure - Departure Disposition: 01 Home, Self Care Clinical Impression: Acute UTI Condition: Good Instructions: ED UTI Cystitis Female Prescriptions: Fluconazole 150 mg PO ONCE #1 tablet cephALEXin [Keflex] 500 mg PO BID #10 cap Comments: Kat, Your urine shows signs of urinary tract infection. I am going to put you on antibiotics for the next 5 days. I have also given you a medication for possible yeast infection, fluconazole, which you should take after you complete the antibiotics. We did send the urine for evaluation for possible sexually tra nsmitted infection I think this is less likely. We will notify you if there are any positive results. Medication sent to [facility] Forms: PCP List
[2024-01-12 18:05] VITALS: BP 114/74; O2SAT 100
[2024-01-12 18:12] LABS: BILIRUBIN,URINE NEGATIVE (NEGATIVE); GLUCOSE, URINE (UA) NEGATIVE (NEGATIVE); KETONES,URINE (UA) NEGATIVE (NEGATIVE); LEUKOCYTE ESTERASE, URINE TRACE (NEGATIVE); NITRITE,URINE NEGATIVE (NEGATIVE); OCCULT BLOOD,URINE TRACE-INTA (NEGATIVE); PROTEIN,URINE NEGATIVE (NEGATIVE); UROBILINOGEN,URINE 0.2 (NORMAL) E.U./dL (NORMAL)
[2024-01-12 18:16] LABS: CLARITY,URINE CLEAR (CLEAR); HCG UR QUAL NEGATIVE
[2024-01-12 18:21] LABS: BACTERIA,URINE Few /HPF (None Seen); RBC,URINE 0-5 /HPF (0-5); SQUAMOUS EPITHELIAL CELL,UR FEW Squamous (<= Few)
[2024-01-12 21:42] LABS: CHLAMYDIA TRACHOMATIS DNA NEGATIVE (NEGATIVE); NEISSERIA GONORRHOEAE DNA NEGATIVE (NEGATIVE); TRICHOMONAS VAGINALIS DNA NEGATIVE (NEGATIVE)
== END 2024-01-12 19:14 | disposition home or self-care (01) ==
LOC: ED 17:48
DX: N39.0 Urinary tract infection, site not specified (principal)
CPT/HCPCS: 81001; 81025; 87086; 87491; 87591; 87661; 99282; 99283

== ENCOUNTER 2024-01-30 00:46 | Emergency (ER) | payer OTHER ==
[2024-01-30 00:57] VITALS: BP 119/81; O2SAT 98
--- NOTE | 2024-01-30 01:07 | ED Physician Documentation ---
PD HPI HEENT - Stated complaint Stated Complaint: TOOTH PX - Chief complaint Chief Complaint: Heent - History obtained from History obtained from: Patient - Additional information Additional information: HPI from patient. Patient c/o dental pain. She says all four of her wisdom teeth are impacted and causing varying degrees of pain, scheduled to have them removed 02/21/24. She presents at this time due to worsening pain , particularly the right mandibular wisdom tooth. Denies discharge, swelling, fever. Has been taking OTC (ibuprofen, naproxen) without adequate relief. 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 : None HEENT: None Psych: None Musculoskeletal: None Derm: Eczema - Past Surgical History Past Surgical History: No - Present Medications Home Medications: Ambulatory Orders Medication Instructions Recorded Confirmed Amox/Clav 875/125 [Augmentin 1 tablet PO Q12H 7 Days #14 tablet 01/30/24 875/125 Tab] HYDROcod/ACETAM 5/325 [[place] 5/325] 1 - 2 tablet PO Q6H PRN #14 tablet 01/30/24 - Allergies Allergies/Adverse Reactions: Allergies Allergy/AdvReac Type Severity Reaction Status Date / Time No Known Drug Allergies Allergy Verified 01/12/24 18:06 - Social History Does the pt smoke?: No Smoking Status: Never smoker Does the pt drink ETOH?: No Does the pt have substance abuse?: No - Immunizations Immunizations are current?: Yes - POLST Patient has POLST: No PD ED PE NORMAL - Vitals Vital signs reviewed: Yes - General General: Alert and oriented X 3, No acute distress, Well developed/nourished PD ED PE EXPANDED - HEENT HEENT Visual: 1 - tenderness (TTP with significant gingival overgrowth of the lingual aspect of the crown without erythema, swelling, fluctuance, discharge) Results - Vitals Vitals: Oxygen O2 Source Room air PD Medical Decision Making - ED course Complexity details: considered differential, d/w patient ED course: both mandibular 3rd molars have moderate gingival overgrowth. Although no overt evidence of infection, given that her dental appointment isn't until end of the month, will rx augmentin (first dose in ED) to minimize infection risk. I encouraged her to buy oil of cloves at local pharmacy (or else plain cloves) to apply to the affected area which might provide mild, transient relief of pain. Encouraged to continue NSAIDs but also providing rx vicodin for uncontrolled pain with these other measures, and encouraged her to try to only use the vicodin at night. Driving precautions reviewed, as well. Departure - Departure Disposition: Home, Self Care Clinical Impression: Pain, dental Condition: Good Instructions: ED Tooth Pain Prescriptions: Amox/Clav 875/125 [Augmentin 875/125 Tab] 1 tablet PO Q12H 7 Days #14 tablet HYDROcod/ACETAM 5/325 [[place] 5/325] 1 - 2 tablet PO Q6H PRN #14 tablet PRN Reason: Pain Comments: You were given the first dose of an antibiotic (Augmentin) in the emergency department along with 2 tablets of Vicodin (narcotic/opiate pain medication), and I have electronically submitted prescriptions for both of these medications to the [facility] pharmacy in [place]. As we discussed, I recommend that you contact the office of the dentist where you are to have the procedure at the end of this month to inquire as to whether they can get you in sooner than scheduled. I am prescribing a short course of narcotic pain medication for you. These are potentially dangerous and addictive medications that should be used carefully. These medications may constipate you. Take an [id number] stool softener (docusate) twice daily with plenty of water while taking these medications. If you go 24 hours without a bowel movement, take [id number] miralax, per package instructions. Do not drink or drive while taking these medications. If you received narcotic or sedating medications while in the emergency department, do not drive for 24 hours. Store this medication in a safe, secure place and out of reach of children. It is a violation of federal law to give or sell this medication to another person or to use in a manner other than prescribed. The ED will not refill narcotic prescriptions, including prescriptions lost or stolen. To dispose of unwanted medications: 1. [facility] at [address] in [place] has a medication drop box. They accept prescription medications (in pill form) Wednesday through Wednesday 9:00 a.m. to 5:00 p.m. 2. The [facility] [employer] accepts prescription medications (in pill form only) for disposal year round. Call for more information. 3. Contact the [facility] for the next [facility] sponsored prescription drug collection event. , [phone], or [phone]; Note that many narcotic pain relievers also contain Tylenol/acetaminophen. Please ensure that your total dose of acetaminophen from all sources does not exceed 3 g (3000 mg) per day. Discharge Date/Time: 01/30/24 01:52
[2024-01-30] MEDS: AMOX/CLAV 875 MG/125 MG TABLET PO STA (01:43)
[2024-01-30] MEDS: HYDROcod/ACETAM 5/325 MG TABLET PO STA (01:43)
== END 2024-01-30 01:52 | disposition home or self-care (01) ==
LOC: ED 00:46
DX: K08.89 Other specified disorders of teeth and supporting structures (principal)
CPT/HCPCS: 99283; A9270